=== PATIENT | female | born 1990 | race Caucasian/White ===

== ENCOUNTER 2021-06-06 22:09 | Emergency (ER) | payer MEDICAID ==
[~2021-06-06] VITALS: Ht 129.5 cm; Wt 63.6 kg
[2021-06-06 22:14] VITALS: TEMP 98.6
[2021-06-07 00:16] VITALS: BP 148/101; PULSE 85
== END 2021-06-07 00:16 | disposition home or self-care (01) ==
LOC: COL.ER 22:09
DX: R10.32 Left lower quadrant pain (principal); K59.00 Constipation, unspecified
CPT/HCPCS: J2250; Q9967